=== PATIENT | female | born 1995 | race Caucasian/White ===

== ENCOUNTER → 2018-12-01 | Outpatient (CLI) | payer BC ==
[~2018-12-01] MED LIST: BIRTH CONTROL1 EAC1 PO; MOTRIN800 MG PO; NAPROSYN250 MG PO; VALIUM10 MG PO
== END | disposition home or self-care (01) ==
LOC: US 10-15 10:00
DX: N92.0 Excessive and frequent menstruation with regular cycle (principal)

== ENCOUNTER 2019-04-06 11:58 | Emergency (ER) | payer BC ==
[~2019-04-06] VITALS: Ht 157.4 cm; Wt 66.2 kg
[2019-04-06 12:27] LABS: BASO # 0.1 10*3/uL (0.0-0.1); BASO % 0.5 % (0.0-1.0); EOS # 0.1 10*3/uL (0.0-0.4); EOS % 1.1 % (1.0-4.0); HEMATOCRIT 39.8 % (37.0-47.0); HEMOGLOBIN 13.4 g/dl (12.0-16.0); LYMPH # 3.7 10*3/uL (1.3-4.4); LYMPH % 34.1 % (27.0-41.0); MEAN CELL VOLUME 93.4 fl (81.0-99.0); MEAN CORPUSCULAR HGB 31.5 pg (27.0-31.0); MEAN CORPUSCULAR HGB CONC 33.7 g/dl (33.0-37.0); MEAN PLATELET VOLUME 8.9 fl (9.6-12.3); MONO # 0.5 10*3/uL (0.1-1.0); MONO % 4.2 % (3.0-9.0); NEUT # 6.5 10*3/uL (2.3-7.9); NEUT % 59.9 % (47.0-73.0); PLATELET COUNT AUTOMATED 375 10*3/uL (130-400); RED BLOOD COUNT 4.26 10*6/uL (4.10-5.10); RED CELL DISTRI WIDTH 12.7 % (0-14.5); WHITE BLOOD COUNT 10.8 10*3/uL (4.8-10.8)
[2019-04-06 12:41] LABS: ALBUMIN 3.9 gm/dl (3.1-4.5); ALKALINE PHOSPHATASE 61 U/L (45-117); BUN 13 mg/dl (7-24); CHLORIDE 111 mmol/L (98-107); LIPASE 81 U/L (73-393); POTASSIUM 3.7 mmol/L (3.5-5.1); SGOT/AST 17 IU/L (3-35); SGPT/ALT 15 U/L (12-78); SODIUM 140 mmol/L (136-145); TOTAL PROTEIN 7.4 gm/dL (6.4-8.2)
[2019-04-06 13:03] LABS: BILIRUBIN NEGATIVE (NEGATIVE); BLOOD 1+ (NEGATIVE); CLARITY CLEAR (CLEAR); COLOR YELLOW (YELLOW); GLUCOSE NEGATIVE (NEGATIVE); KETONE NEGATIVE (NEGATIVE); LEUKO ESTERASE NEGATIVE (NEGATIVE); NITRITE NEGATIVE (NEGATIVE); SPECIFIC GRAVITY >= 1.030 (1.005-1.030); UROBILINOGEN 0.2 E.U./dl (0.2-1.0)
[2019-04-06 13:09] LABS: BACTERIA 1+; MUCOUS 2+
== END 2019-04-06 14:12 | disposition home or self-care (01) ==
LOC: ED 11:58
PROVIDERS: Emergency Medicine
DX: R10.31 Right lower quadrant pain (principal); Z79.899 Other long term (current) drug therapy

== ENCOUNTER → 2021-11-21 | Outpatient (CLI) | payer MEDICAID | LOC: US 14:55 | PROVIDERS: ATTEND Nurse Practitioner Women's Health | DX: Z34.81 Encounter for supervision of other normal pregnancy, first trimester (principal); Z3A.10 10 weeks gestation of pregnancy ==